=== PATIENT | female | born 1990 | race Two or more races ===

== ENCOUNTER 2018-08-30 10:42 | Emergency (ER) | payer BC, OTHER ==
[~2018-08-30] VITALS: Ht 160 cm; Wt 69.0 kg
[~2018-08-30 10:42] MED LIST: PRENATAL; TRIMETHOPRIM
[2018-08-30 12:45] LABS: CLARITY URINE TURBID (CLEAR); COLOR URINE YELLOW (YELLOW); KETONES URINE NEGATIVE (NEGATIVE); LEUKOCYTE ESTERASE URINE 3+ (NEGATIVE); NITRITE URINE NEGATIVE (NEGATIVE); OCCULT BLOOD URINE NEGATIVE (NEGATIVE); PH URINE 6.5 (4.5-8.0); PROTEIN URINE 1+ (NEGATIVE); SPECIFIC GRAVITY URINE 1.026 (1.005-1.030)
[2018-08-30 14:42] VITALS: BP 119/49
== END 2018-08-30 18:12 | disposition left against medical advice (07) ==
LOC: ER 10:45
DX: R10.30 Lower abdominal pain, unspecified (principal); Z53.21 Procedure and treatment not carried out due to patient leaving prior to being seen by health care provider
CPT/HCPCS: 81025; 93005

== ENCOUNTER 2019-09-05 18:26 | Emergency (ER) | payer BC, MEDICAID, OTHER ==
[~2019-09-05] VITALS: Ht 167.6 cm; Wt 71.0 kg
[2019-09-05 18:46] VITALS: BP 118/79
== END 2019-09-05 21:41 | disposition left against medical advice (07) ==
LOC: ER 18:26
DX: R10.9 Unspecified abdominal pain (principal); Z53.21 Procedure and treatment not carried out due to patient leaving prior to being seen by health care provider

== ENCOUNTER 2020-03-30 14:44 | Observation (INO) | payer OTHER ==
[~2020-03-30] VITALS: Ht 152.4 cm; Wt 63.5 kg
[2020-03-30] MEDS ORDERED: TERBUTALINE SULFATE 1MG/ML VIAL SUBCUT PRN (15:45)
[2020-03-30] MEDS ORDERED: LACTATED RINGERS 1,000 ML IV SCH (15:45)
[2020-03-30 16:08] LABS: CLARITY URINE CLEAR (CLEAR); COLOR URINE YELLOW (YELLOW); KETONES URINE NEGATIVE (NEGATIVE); LEUKOCYTE ESTERASE URINE NEGATIVE (NEGATIVE); NITRITE URINE NEGATIVE (NEGATIVE); OCCULT BLOOD URINE NEGATIVE (NEGATIVE); PH URINE >=9.0 (4.5-8.0); PROTEIN URINE TRACE (NEGATIVE); SPECIFIC GRAVITY URINE 1.018 (1.005-1.030); UROBILINOGEN URINE 0.2 E.U./dL (0.2-1.0)
== END 2020-03-30 17:30 | disposition home or self-care (01) ==
LOC: 8 EST LDRP 14:44
PROVIDERS: ADMIT Obstetrics & Gynecology; ATTEND Obstetrics & Gynecology
DX: O26.892 Other specified pregnancy related conditions, second trimester (principal); R10.2 Pelvic and perineal pain; R35.0 Frequency of micturition; Z3A.26 26 weeks gestation of pregnancy
CPT/HCPCS: 59025; 81003; 82731; 96360; 96361; 96372; G0378; J3105; 99281; J7120

== ENCOUNTER 2020-04-14 16:41 | Observation (INO) | payer OTHER ==
[~2020-04-14] VITALS: Ht 152.4 cm; Wt 67.1 kg
[2020-04-14 17:47] LABS: CLARITY URINE CLEAR (CLEAR); COLOR URINE YELLOW (YELLOW); KETONES URINE NEGATIVE (NEGATIVE); LEUKOCYTE ESTERASE URINE 2+ (NEGATIVE); NITRITE URINE NEGATIVE (NEGATIVE); OCCULT BLOOD URINE NEGATIVE (NEGATIVE); PROTEIN URINE NEGATIVE (NEGATIVE); SPECIFIC GRAVITY URINE 1.017 (1.005-1.030)
== END 2020-04-14 20:42 | disposition home or self-care (01) ==
LOC: 8 EST LDRP 16:41
PROVIDERS: ADMIT Obstetrics & Gynecology; ATTEND Obstetrics & Gynecology
DX: O26.853 Spotting complicating pregnancy, third trimester (principal); O26.893 Other specified pregnancy related conditions, third trimester; R10.9 Unspecified abdominal pain; Z3A.28 28 weeks gestation of pregnancy
CPT/HCPCS: 59025; 76805; 76818; 81003; G0378; 99281

== ENCOUNTER 2020-05-23 20:07 | Observation (INO) | payer OTHER ==
[~2020-05-23] VITALS: Ht 154.9 cm; Wt 74.8 kg
[2020-05-23] MEDS ORDERED: PNV1TABL50 PO (21:41)
[2020-05-23] MEDS ORDERED: CEFAZOLIN 2,000 MG in DEXT 5% WATER 100 ML IV SCH (23:30)
[2020-05-24] MEDS ORDERED: ONDANSETRON HCL 4MG/2ML INJ IV PRN (00:30)
[2020-05-24] MEDS: LACTATED RINGERS 1,000 ML IV SCH ×2 (00:45→03:49)
[2020-05-24] MEDS: TERBUTALINE SULFATE 1MG/ML VIAL SUBCUT PRN ×2 (01:25→03:45)
[2020-05-24 01:33] LABS: BASOPHILS % 0.2 % (0.0-2.0); EOSINOPHILS % 0.3 % (0.0-5.0); HEMATOCRIT. 34.5 % (36.0-48.0); HEMOGLOBIN. 11.5 g/dL (12.0-16.0); LYMPHOCYTES % 19.2 % (20.0-50.0); MEAN CORPUSCULAR HEMOGLOBIN 30.9 pg (28.0-32.0); MEAN CORPUSCULAR VOLUME 92.4 fL (81.0-99.0); MEAN PLATELET VOLUME 11.4 fl (7.4-10.4); MONOCYTES % 5.5 % (2.0-8.0); NEUTROPHILS % 74.8 % (40.0-76.0); PLATELET 146 x1000/uL (130-400); RED BLOOD CELL COUNT 3.73 mill/uL (4.2-5.4); RED CELL DISTRIBUTION WIDTH 13.7 % (11.6-14.6)
[2020-05-24 01:49] LABS: PROTHROMBIN TIME 10.4 sec (9.6-11.0)
[2020-05-24] MEDS ORDERED: BUTORPHANOL TARTRATE 2 MG/ML VIAL IM PRN (02:00)
[2020-05-24 02:02] VITALS: BP 145/79
[2020-05-24 02:18] LABS: CLARITY URINE CLEAR (CLEAR); COLOR URINE YELLOW (YELLOW); KETONES URINE NEGATIVE (NEGATIVE); LEUKOCYTE ESTERASE URINE 2+ (NEGATIVE); NITRITE URINE NEGATIVE (NEGATIVE); OCCULT BLOOD URINE NEGATIVE (NEGATIVE); PH URINE 7.5 (4.5-8.0); PROTEIN URINE NEGATIVE (NEGATIVE)
[2020-05-24] MEDS ORDERED: BETAMETHASONE ACET/BETAMET 30 MG/5 ML VIAL IM SCH (07:15)
[2020-05-25] MEDS ORDERED: BETAMETHASONE ACET/BETAMET 30 MG/5 ML VIAL IM SCH (02:00)
[2020-06-24] MEDS ORDERED: FERR325T23 PO (00:10)
[2020-06-24] MEDS ORDERED: IBUP-2030 PO (00:10)
== END 2020-05-24 07:45 | disposition home or self-care (01) ==
LOC: 8 EST LDRP 20:07 → INTOOBSV 20:07
PROVIDERS: ADMIT Obstetrics & Gynecology; ATTEND Obstetrics & Gynecology
DX: O42.913 Preterm premature rupture of membranes, unspecified as to length of time between rupture and onset of labor, third trimester (principal); O62.9 Abnormality of forces of labor, unspecified; Z3A.33 33 weeks gestation of pregnancy; Z79.899 Other long term (current) drug therapy
CPT/HCPCS: 36415; 59025; 76805; 76817; 76818; 81003; 85025; 85610; 85730; 86592; 86850; 86900; 86901; 96361; 96365; 96372; 96375; G0378; J0595; J0690; J0702; J2405; J3105; J7060; 96360; 96374; 99281

== ENCOUNTER 2020-06-03 11:53 | Observation (INO) | payer OTHER ==
[~2020-06-03] VITALS: Ht 152.4 cm; Wt 74.8 kg
[~2020-06-03 11:53] MED LIST changes: +PNV1TABL50 PO; -TRIMETHOPRIM
[2020-06-03] MEDS ORDERED: LACTATED RINGERS 1,000 ML IV SCH (13:00)
[2020-06-03] MEDS ORDERED: ACETAMINOPHEN 500MG TABLET PO ONE (14:30)
[2020-06-03 14:47] LABS: CLARITY URINE CLOUDY (CLEAR); COLOR URINE YELLOW (YELLOW); KETONES URINE TRACE (NEGATIVE); LEUKOCYTE ESTERASE URINE 2+ (NEGATIVE); NITRITE URINE NEGATIVE (NEGATIVE); OCCULT BLOOD URINE NEGATIVE (NEGATIVE); PROTEIN URINE TRACE (NEGATIVE); SPECIFIC GRAVITY URINE 1.025 (1.005-1.030)
[2020-06-03] MEDS ORDERED: CEFAZOLIN 2,000 MG in DEXT 5% WATER 100 ML IV NR (17:00)
== END 2020-06-03 16:50 | disposition home or self-care (01) ==
LOC: 8 EST LDRP 11:53
PROVIDERS: ADMIT Obstetrics & Gynecology; ATTEND Obstetrics & Gynecology
DX: O99.891 Other specified diseases and conditions complicating pregnancy (principal); M54.5 Low back pain; O36.8130 Decreased fetal movements, third trimester, not applicable or unspecified; Z3A.35 35 weeks gestation of pregnancy
CPT/HCPCS: 59025; 76815; 76818; 81003; 96361; 96365; G0378; J0690; J7060; 96360; 99281

== ENCOUNTER 2021-03-18 09:55 | Emergency (ER) | payer OTHER ==
[~2021-03-18] VITALS: Ht 152.4 cm; Wt 63.0 kg
[~2021-03-18 09:55] MED LIST changes: +FERR325T23 PO; +IBUP-2030 PO; -PRENATAL
[2021-03-18] MEDS ORDERED: SODIUM CHLORIDE 0.9% 1,000 ML IV ONE (11:00)
[2021-03-18] MEDS ORDERED: ACETAMINOPHEN 325MG TABLET PO ONE (11:00)
[2021-03-18] MEDS ORDERED: METOCLOPRAMIDE HCL 10MG/2ML VIAL IV ONE (11:00)
[2021-03-18 11:49] LABS: CHLORIDE 103 mEq/L (98-107)
[2021-03-18 12:13] LABS: B-HCG QUANTITATIVE 49779 mIU/mL (<3)
[2021-03-18 13:12] LABS: CLARITY URINE CLOUDY (CLEAR); COLOR URINE YELLOW (YELLOW); KETONES URINE 3+ (NEGATIVE); LEUKOCYTE ESTERASE URINE 3+ (NEGATIVE); NITRITE URINE NEGATIVE (NEGATIVE); OCCULT BLOOD URINE NEGATIVE (NEGATIVE); PROTEIN URINE TRACE (NEGATIVE); SPECIFIC GRAVITY URINE 1.024 (1.005-1.030)
[2021-03-18] MEDS ORDERED: CEPHALEXIN 250MG CAPSULE PO ONE (13:30)
[2021-03-18 14:04] LABS: BASOPHILS % 0.1 % (0.0-2.0); HEMATOCRIT. 35.6 % (36.0-48.0); HEMOGLOBIN. 12.4 g/dL (12.0-16.0); LYMPHOCYTES % 15.3 % (20.0-50.0); MEAN CORPUSCULAR HEMOGLOBIN 30.5 pg (28.0-32.0); MEAN CORPUSCULAR VOLUME 87.3 fL (81.0-99.0); MEAN PLATELET VOLUME 8.9 fl (7.4-10.4); MONOCYTES % 6.7 % (2.0-8.0); NEUTROPHILS % 77.9 % (40.0-76.0); PLATELET 148 x1000/uL (130-400); RED BLOOD CELL COUNT 4.08 mill/uL (4.2-5.4); RED CELL DISTRIBUTION WIDTH 13.2 % (11.6-14.6)
[2021-03-18] MEDS ORDERED: FENTANYL CITRATE/PF 50MCG/ML 2ML VIAL IV NR (14:30)
[2021-03-18 14:41] LABS: *AMPHETAMINES SCREEN URINE NEGATIVE (NEGATIVE); *BARBITURATES SCREEN URINE NEGATIVE (NEGATIVE); CANNABINOID URINE SCREEN NEGATIVE (NEGATIVE); OPIATES URINE SCREEN NEGATIVE (NEGATIVE); PHENCYCLIDINE URINE SCREEN NEGATIVE (NEGATIVE)
[2021-03-18 14:42] LABS: *BENZODIAZEPINES SCREEN URINE NEGATIVE (NEGATIVE); *COCAINE SCREEN URINE NEGATIVE (NEGATIVE); METHADONE URINE SCREEN NEGATIVE (NEGATIVE)
[2021-03-18] MEDS ORDERED: FENTANYL CITRATE/PF 50MCG/ML 2ML VIAL IM ONE (14:45)
[2021-03-18] MEDS ORDERED: CEPH500C2 MT (15:12)
[2021-03-18] MEDS ORDERED: METO-293 MT (15:12)
[2021-03-18] MEDS ORDERED: ACET-2708 MT (15:12)
[2021-03-18 15:39] VITALS: BP 93/54
== END 2021-03-18 15:40 | disposition home or self-care (01) ==
LOC: ER 09:55
DX: O98.512 Other viral diseases complicating pregnancy, second trimester (principal); U07.1 COVID-19; O23.41 Unspecified infection of urinary tract in pregnancy, first trimester; B34.9 Viral infection, unspecified; O26.892 Other specified pregnancy related conditions, second trimester; F41.9 Anxiety disorder, unspecified; Z79.899 Other long term (current) drug therapy; Z3A.15 15 weeks gestation of pregnancy; E86.0 Dehydration
CPT/HCPCS: 36415; 76805; 80053; 80305; 81003; 84702; 85025; 86850; 86900; 86901; 87086; 87804; 96361; 96372; 96374; 99285; C9803; J2765; J3010; J7030; U0003; U0005